=== PATIENT | female | born 1965 | race Caucasian/White ===

== ENCOUNTER 2018-12-08 13:41 | Emergency (ER) | payer OTHER ==
[2018-12-08] MEDS ORDERED: Ketorolac 30 MG/ML SDV IVPUSH ONE (14:40)
[2018-12-08 14:41] LABS: ANION GAP 12.7 mmol/L (5-15); CHLORIDE,CL 99 mmol/L (98-115); SODIUM,NA 133 mmol/L (136-145)
[2018-12-08] MEDS: Sodium Chloride 0.9% 10 ML Syringe FLUSH PRN ×2 (14:45→15:00)
--- NOTE | 2018-12-08 14:49 | EDM.PDOC ---
ED HPI GENERAL MEDICAL PROBLEM - General Chief Complaint: General Stated Complaint: POSSIBLE KIDNEY INFECTION?? Time Seen by Provider: 12/08/18 14:28 Source of Information: Reports: Patient History Limitations: Reports: No Limitations - History of Present Illness INITIAL COMMENTS - FREE TEXT/NARRATIVE: Patient presents with left flank pain that she believes is a kidney infection, started two days ago. She has also been drinking and urinating more than usual with increased thirst. She has NIDDM controlled by Metformin. She says at her last doctor visit, 6 months ago, the dose was reduced due to concern of hypoglycemic episodes. She doesn't check glucose at home. When asked about possible injury to torso she states that 2 days ago she fell landing on left lateral ribs. Left Flank Pain Score (Numeric/FACES): 7 - Related Data Allergies Allergy/AdvReac Type Severity Reaction Status Date / Time No Known Allergies Allergy Verified 12/08/18 13:56 Home Meds: Home Meds metFORMIN HCl [Metformin HCl] 500 mg PO BID 08/27/15 [History] Furosemide 40 mg PO BID PRN #45 tablet 08/28/15 [Rx] Past Medical History HEENT History: Reports: Impaired Vision Other Genitourinary History: increased urination during the night. 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 Lichen planus - Past Surgical History Cardiovascular Surgical History: Reports: None GI Surgical History: Reports: None Female Surgical History: Reports: Tubal Ligation Social & Family History - Tobacco Use Smoking Status *Q: Current Every Day Smoker Years of Tobacco use: 25 Packs/Tins Daily: 0.7 Second Hand Smoke Exposure: Yes - Caffeine Use Caffeine Use: Reports: Coffee, Tea - Recreational Drug Use Recreational Drug Use: No - Living Situation & Occupation Living situation: Reports: with Family Occupation: Unemployed ED ROS GENERAL - Review of Systems Review Of Systems: See Below Constitutional: Denies: Fever, Chills HEENT: Denies: Ear Pain, Throat Pain, Vision Change Respiratory: Denies: Shortness of Breath, Cough Cardiovascular: Denies: Chest Pain, Lightheadedness, Syncope Endocrine: Reports: High Glucose, Polydypsia, Polyuria GI/Abdominal: Denies: Abdominal Pain, Bloody Stool, Constipation, Diarrhea, Nausea, Vomiting : Reports: Flank Pain, Frequency. Denies: Dysuria, Hematuria Musculoskeletal: Denies: Neck Pain, Shoulder Pain, Arm Pain, Back Pain, Hand Pain Skin: Denies: Cyanosis, Jaundice, Mottled, Pallor, Diaphoresis Neurological: Denies: Confusion, Seizure, Weakness, Change in Speech Psychiatric: Denies: Agitation, Anxiety, Confusion ED EXAM, GENERAL - Physical Exam Exam: See Below Exam Limited By: No Limitations General Appearance: Alert, WD/WN, No Apparent Distress Eye Exam: Bilateral Eye: EOMI, PERRL, Other (chronic divergent gaze) Ears: Normal External Exam, Hearing Grossly Normal Nose: Normal Inspection, No Blood Throat/Mouth: Normal Inspection, Normal Lips, Normal Voice, No Airway Compromise Head: Atraumatic, Normocephalic Neck: Normal Inspection, Full Range of Motion Respiratory/Chest: No Respiratory Distress, Lungs Clear, Normal Breath Sounds, No Accessory Muscle Use, Chest Non-Tender Cardiovascular: Regular Rate, Rhythm, No Murmur GI/Abdominal: Soft, Non-Tender, No Organomegaly, No Distention, Other (obese) Back Exam: CVA Tenderness (L) (the most tender area is 3-4 inches superior to left CVA but no crepitus or deformity evident.) Extremities: Normal Inspection, Normal Range of Motion Neurological: Alert, Oriented, Normal Cognition, No Motor/Sensory Deficits Psychiatric: Normal Affect, Normal Mood Skin Exam: Warm, Dry, Intact, Normal Color, No Rash Course - Vital Signs Last Recorded V/S: Last Vital Signs Temp 99.0 F 12/08/18 13:51 Pulse 80 12/08/18 13:51 Resp 20 12/08/18 13:51 BP 185/91 H 12/08/18 13:51 Pulse Ox 91 L 12/08/18 13:51 - Orders/Labs/Meds Orders: Active Orders 24 hr Category Date Time Status Ribs 3V w Chest Bi [CR] Routine Exams 12/08/18 14:40 Ordered Labs: Laboratory Tests 12/08/18 12/08/18 12/08/18 Range/Units 14:05 14:10 14:10 WBC 11.15 H (5.00-10.00) 10^3/uL RBC 5.35 (3.80-5.50) 10^6/uL Hgb 15.9 (12.0-16.0) g/dL Hct 48.1 H (37.0-47.0) % MCV 89.9 (82.0-92.0) fL MCH 29.7 (27.0-31.0) pg MCHC 33.1 (32.0-36.0) g/dL RDW 15.1 H (11.5-14.5) % Plt Count 279 (150-400) 10^3/uL MPV 10.4 (7.4-10.4) fL Immature Gran % (Auto) 0.4 (0.0-5.0) % Neut % (Auto) 65.5 (50.0-70.0) % Lymph % (Auto) 26.8 (20.0-40.0) % [place] % (Auto) 4.7 (2.0-8.0) % Eos % (Auto) 2.2 (1.0-3.0) % Baso % (Auto) 0.4 (0.0-1.0) % Immature Gran # (Auto) 0.05 (0.00-0.50) 10^3/uL Neut # (Auto) 7.30 H (2.50-7.00) 10^3/uL Lymph # (Auto) 2.99 (1.00-4.00) 10^3/uL [place] # (Auto) 0.52 (0.10-0.80) 10^3/uL Eos # (Auto) 0.24 (0.10-0.30) 10^3/uL Baso # (Auto) 0.05 (0.00-0.10) 10^3/uL Sodium 133 L (136-145) mmol/L Potassium 4.3 (3.3-5.3) mmol/L Chloride 99 (98-115) mmol/L Carbon Dioxide 25.6 (21.0-32.0) mmol/L Anion Gap 12.7 (5-15) mmol/L BUN 11 (6-25) mg/dL Creatinine 0.50 L (0.51-1.17) mg/dL Est Cr Clr Drug Dosing 132.77 mL/min Estimated GFR (MDRD) > 60 mL/min Glucose 319 H (75 - 99) mg/dL Calcium 8.9 (8.7-10.3) mg/dL Specimen Type Urincc Urine Color Yellow (YELLOW) Urine Appearance Slightly cloudy H (CLEAR) Urine pH 5.5 (5.0-9.0) Ur Specific [place] 1.020 (1.005-1.030) Urine Protein Negative (NEGATIVE) mg/dL Urine Glucose (UA) 500 H (NEGATIVE) mg/dL Urine Ketones 15 H (NEGATIVE) mg/dL Urine Occult Blood Negative (NEGATIVE) Urine Nitrite Negative (NEGATIVE) Urine Bilirubin Negative (NEGATIVE) Urine Urobilinogen 0.2 (0.2-1.0) E.U./dL Ur Leukocyte Esterase Negative (NEGATIVE) Urine RBC 0-5 (0-5) /HPF Urine WBC 0-5 (0-5) /HPF Ur Epithelial Cells Moderate H /LPF Urine Bacteria Few (NONE TO FEW) /HPF Meds: Medications Discontinued Medications Generic Name Dose Route Start Last Admin Trade Name Jorge PRN Reason Stop Dose Admin Ketorolac Tromethamine 30 mg 12/08/18 14:40 12/08/18 14:51 Toradol IVPUSH 12/08/18 14:41 30 mg ONETIME ONE Administration - Re-Assessments/Exams Free Text/Narrative Re-Assessment/Exam: 12/08/18 15:01 Glucose is 319. Discussed this with Dr. Chavez, pt's PCP, recommends increasing metformin dose to 1000 mg bid. She wants me to check a Hga1c today also and follow up either with [facility] next week or in two weeks with Dr. Chavez when she is back. 12/08/18 16:11 CXR with ribs shows no evidence of fracture and lungs are clear. Pain is improved with the Toradol. Discussed findings and treatment plan with patient, including the many effects of long-term uncontrolled hyperglycemia. Patient verbalizes understanding and is discharged to home in stable condition. Departure - Departure Time of Disposition: 16:07 Disposition: Home, Self-Care 01 Condition: Good Clinical Impression: Poorly controlled type 2 diabetes mellitus, Rib pain on left side - Discharge Information Instructions: Type 2 Diabetes Mellitus, Diagnosis, Adult Referrals: Kitty Mcdaniel MD [Primary Care Provider] - Forms: ED Department Discharge Additional Instructions: 1. Increase your metformin to 1000 mg twice daily. 2. You can use Tylenol 500 mg alternating with Ibuprofen 600 mg three times a day as needed for pain control. 3. Follow up with Dr. Chavez in two weeks for recheck on your diabetes. 4. If any problems, recheck sooner with [facility] in clinic. - My Orders Last 24 Hours: My Active Orders 12/08/18 14:40 Ribs 3V w Chest Bi [CR] Routine - Assessment/Plan Last 24 Hours: My Active Orders 12/08/18 14:40 Ribs 3V w Chest Bi [CR] Routine
[2018-12-08 15:08] LABS: HEMOGLOBIN A1C 9.3 % (4.3-5.7)
[2018-12-08] MEDS ORDERED: Nitroglycerin 0.4 MG Tab.SL SL ONE (15:16)
--- NOTE | 2018-12-08 15:27 | CR ---
[id number] RAD/RAD Ribs Bilateral 3V EXAM: 5 VIEWS RIBS. INDICATION: LEFT POSTERIOR RIB PAIN AFTER FALL. COMPARISON: None. DISCUSSION: No fracture, dislocation or other acute osseous abnormality. The lungs are clear. Cardiomediastinal silhouette is normal in size and contour. IMPRESSION: 1. NO ACUTE OSSEOUS ABNORMALITIES. Bolivar King DO 12/08/18 1526 Thank you for allowing us to participate in the care of your patient.
[2018-12-08 16:02] VITALS: BP 151/83
== END 2018-12-08 16:15 | disposition home or self-care (01) ==
LOC: KA.ED 13:41
DX: E11.65 Type 2 diabetes mellitus with hyperglycemia (principal); R07.81 Pleurodynia; Z79.84 Long term (current) use of oral hypoglycemic drugs
CPT/HCPCS: 36415; 71111; 80048; 81001; 83036; 85025; 96374; 99284; J1885